=== PATIENT | female | born 1930 | race Caucasian/White ===

== ENCOUNTER 2017-02-15 15:46 | Emergency (ER) | payer OTHER ==
[~2017-02-15] VITALS: Ht 157.5 cm; Wt 50.8 kg
[~2017-02-15 15:46] MED LIST: ACCUPRIL20 MG PO; AUGMENTIN 500-1 EACH PO; CALCIUM500 M1 PO; COLACE100 M1 PO; FISH OIL 1,0001 EAC1 PO; GABAPENTIN400 M2 PO; HYDROCODON-ACE1 EAC2 PO; HYDRODIURIL 2525 MG PO; LEVOTHYROXINE0.1 M1 PO; LEVOTHYROXINE88 MCG PO; MIRALAX17 G1 PO; OXYCONTIN10 M1 PO; PERCOCET 10-321 EACH PO; PRAVASTATIN SOD40 MG PO; SENNA8.6 M3 PO; TRAMADOL HCL50 M1 PO; VITAMIN B-121000 MC3 PO; VITAMIN D32000 UNIT PO
[2017-02-15 16:42] LABS: ABSOLUTE BASOPHIL COUNT 0 /CUMM (0.0-0.2); ABSOLUTE EOSINOPHIL COUNT 0.1 /CUMM (0.0-0.7); ABSOLUTE GRANULOCYTE CT 2.8 /CUMM (1.4-6.5); ABSOLUTE LYMPH COUNT 1.2 /CUMM (1.2-3.4); ABSOLUTE MONOCYTE COUNT 0.8 /CUMM (0.10-0.60); BASOPHIL % 0.4 % (0.0-2.0); EOSINOPHIL % 2.8 % (0-5); GRANULOCYTE % 56.4 % (42.2-75.2); HEMATOCRIT 37.6 % (37-47); MEAN CORPUSCULAR HGB 29.8 PG (27.0-31.0); MEAN CORPUSCULAR HGB CONC 33.3 G/DL (33.0-37.0); MEAN CORPUSCULAR VOLUME 89.4 FL (81.0-99.0); MEAN PLATELET VOLUME 8.2 FL (7.4-10.4); PLATELET COUNT 267 /CUMM (130-400); RBC DISTRIBUTION WIDTH 14.8 % (11.5-14.5); RED BLOOD CELL CT 4.21 /CUMM (4.20-5.40); WHITE BLOOD CELL COUNT 4.9 /CUMM (4.8-10.8)
[2017-02-15 18:40] VITALS: BP 129/93
--- NOTE | 2017-02-15 18:45 | ED GENERAL ADULT ---
See Addendum History of Present Illness General Chief Complaint: General Adult Stated Complaint: SENT BY DR ARENAS FOR EVAL, ELEVATED LIVER ENZ Source: patient, family Exam Limitations: no limitations Vital Signs & Intake/Output Vital Signs & Intake/Output Vital Signs Date Time Temp Pulse Resp B/P B/P Pulse O2 O2 Flow FiO2 Mean Ox Delivery Rate 02/15 1840 97.7 88 20 129/93 94 Room Air 02/15 1552 98.1 73 16 160/82 95 Room Air ED Intake and Output 02/16 0000 02/15 1200 Intake Total Output Total Balance Patient 112 lb Weight Weight Reported by Patient Measurement Method Allergies Coded Allergies: naproxen (From [facility]) (Intermediate, ecchymosis 06/15/16) Reconcile Medications Augmentin (Augmentin 500-125 Tablet) 1 EACH TABLET 500 MG PO Q8 UTI Calcium Carbonate (Calcium) 500 MG TABLET 2 TAB PO DAILY SUPPLEMENT (Reported ) Cholecalciferol (Vitamin D3) (Vitamin D3) 2,000 UNIT CAPSULE 1 CAP PO DAILY SUPPLEMENT (Reported) Cyanocobalamin (Vitamin B-12) 1,000 MCG TABLET 1 TAB PO DAILY SUPPLEMENT ( Reported) Docusate Sodium (Colace) 100 MG CAPSULE 1 CAP PO BID PRN Constipation Gabapentin 400 MG CAPSULE 1 CAP PO QHS NERVE PAIN (Reported) Hydrochlorothiazide (Hydrodiuril 25 MG Tab) 25 MG TABLET 1 TAB PO DAILY HTN ( Reported) Levothyroxine Sodium 88 MCG TABLET 1 TAB PO DAILY THYROID (Reported) [place]-3 Fatty Acids/Fish Oil (Fish Oil 1,000 MG Softgel) 1 EACH CAPSULE 1 CAP PO DAILY SUPPLEMENT (Reported) Oxycodone HCl (Oxycontin) 10 MG TAB.ER.12H 10 MG PO Q12 Pain Oxycodone HCl/Acetaminophen (Percocet 10-325 MG Tablet) 1 EACH TABLET 1 TAB PO 4 TIMES/DAY PRN Pain Polyethylene Glycol 3350 (Miralax) 17 GM POWD.PACK 1 PAC PO DAILY PRN Constipation dissolve in water Pravastatin Sodium 40 MG TABLET 1 TAB PO DAILY CHOL (Reported) Quinapril HCl (Accupril) 20 MG TABLET 1 TAB PO DAILY BP (Reported) Sennosides (Senna) 8.6 MG TABLET 2 TAB PO BID Constipation Triage Note: PT SENT IN BY DR. ARENAS FOR EVAL OF ELEVATED LIVER ENZYMES. PT STATES SHE WAS TAKING X-TRA STRENGTH APAP 3 TIMES A DAY FOR SPINAL STINOSIS AND THINKS THAT IT WHAT DID IT. PT DENIES ANY S/S Triage Nurses Notes Reviewed? yes Onset: Abrupt Duration: unknown duration Timing: remote history HPI: 02/15/17 6:41 PM This is an 86-year-old female presents to the emergency department for ultrasound and follow-up lab testing. According to the patient she saw Dr. Arenas who did outpatient liver enzyme tests and she was told that they were elevated and was asked to come to the emergency department for an ultrasound She denies abdominal pain or other complaints. She does have a past medical history of spinal stenosis. She is been taking 2 extra strength Tylenol tablets 3 times a day since July. No vomiting or fever. (SUMIT MONTERROSO DO) Past History Travel History Traveled to [place] past 21 day No Medical History Any Pertinent Medical History? 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 No (SUMIT MONTERROSO DO) Review of Systems Review of Systems Constitutional: Denies: fever. EENTM: Reports: no symptoms. Respiratory: Denies: short of breath. Cardiovascular: Denies: chest pain. GI: Denies: abdominal pain. Genitourinary: Reports: no symptoms. Musculoskeletal: Reports: joint pain. Skin: Denies: jaundice. Neurological/Psychological: Reports: no symptoms. Hematologic/Endocrine: Reports: no symptoms. Immunologic/Allergic: Reports: no symptoms. (SUMIT MONTERROSO DO) Physical Exam Physical Exam General Appearance: alert, awake, anxious, mild distress Head: atraumatic, normal appearance Eyes: Bilateral: normal appearance, PERRL, EOMI. Ears, Nose, Throat: normal pharynx, normal ENT inspection Neck: normal inspection, supple, full range of motion Respiratory: normal breath sounds, chest non-tender Cardiovascular: regular rate/rhythm Peripheral Pulses: 4+ radial (R), 4+ radial (L) Gastrointestinal: soft, non-tender Back: normal range of motion Extremities: normal inspection, normal range of motion Neurologic/Psych: no motor/sensory deficits, awake, alert, oriented x 3 Skin: intact, normal color, warm/dry Core Measures ACS in differential dx? No CVA/TIA Diagnosis: No Severe Sepsis Present: No Septic Shock Present: No (SUMIT MONTERROSO DO) Progress Differential Diagnoses I considered the following diagnoses in my evaluation of the patient: [Chronic Tylenol poisoning, hepatitis, choledocholithiasis, cholangiocarcinoma, adverse drug reaction] Plan of Care: Orders Procedure Date/time Status Add-on Test (ER Only) 02/15 1859 Active Add-on Test (ER Only) 02/15 1846 Active Add-on Test (ER Only) 02/15 1801 Active ACETOMINOPHEN 02/15 1630 Active PROTHROMBIN TIME 02/15 1630 Complete HEPATITIS PANEL 02/15 1630 Active COMPREHENSIVE METABOLIC PANEL 02/15 1619 Active CBC WITHOUT DIFFERENTIAL 02/15 1619 Complete Laboratory Tests 02/15/17 1630: Anion Gap 9, Estimated GFR > 60, BUN/Creatinine Ratio 50.0 H, Glucose 85, Calcium 9.4, Total Bilirubin 0.5, AST 88 H, ALT 145 H, Alkaline Phosphatase 577 H, Total Protein 6.6, Albumin 4.0, Globulin 2.6, Albumin/Globulin Ratio 1.5 , PT 11.1, INR 1.06, CBC w Diff NO MAN DIFF REQ, RBC 4.21, MCV 89.4, MCH 29.8, RDW 14.8 H, MPV 8.2, Gran % 56.4, Lymphocytes % 24.8, Monocytes % 15.6 H, Eosinophils % 2.8, Basophils % 0.4, Absolute Granulocytes 2.8, Absolute Lymphocytes 1.2, Absolute Monocytes 0.8 H, Absolute Eosinophils 0.1, Absolute Basophils 0, PUBS MCHC 33.3, Hepatitis A IgM Ab Pending, Hep Bs Antigen Pending, Hep B Core IgM Ab Conf Pending, Hepatitis C Antibody Pending, Acetaminophen < 10.0 L Initial ED EKG: none (SUMIT MONTERROSO DO) Departure Departure Disposition: STILL A PATIENT Condition: Stable Clinical Impression Primary Impression: Hepatitis Referrals: JAMARCUS HOOKS,MERLIN Hartman (PCP/Family) Departure Forms: Customer Survey General Discharge Information (SUMIT MONTERROSO DO) Departure Comments pt left prior to ultrasound.... family stated there was too much delay... they will follow up with dr. arenas. (VIDHYA HOOKS,JEFF Gamble) Critical Care Note Critical Care Note Critical Care Time: non-applicable (SUMIT MONTERROSO DO)
[2017-02-15 19:41] LABS: PT 11.1 SEC (9.4-12.5)
[2017-03-15] MEDS ORDERED: QUINAPRIL HCL20 M1 PO (10:30)
== END 2017-02-15 19:54 ==
LOC: ERH 15:46
PROVIDERS: Emergency Medicine
DX: K75.9 Inflammatory liver disease, unspecified (principal)
CPT/HCPCS: G0480

== ENCOUNTER → 2017-03-17 | Day surgery (SDC) | payer OTHER ==
[~2017-03-17] VITALS: Ht 154.9 cm; Wt 50.8 kg
[~2017-03-17] MED LIST changes: +QUINAPRIL HCL20 M1 PO
--- NOTE | 2017-03-17 14:03 | Operative Report ---
Operative/Inv Procedure Report Surgery Date: 03/17/17 Name of Procedure: Cataract extraction lens implantation right eye Pre-Operative Diagnosis: Age-related cataract right eye 20/40 vision 20/100 glare vision Post-Operative Diagnosis: Same Estimated Blood Loss: none Surgeon/Registrar Museum: BEVERLY HOOKS,MARIAMA Galindo Anesthesia: local monitored anesthesi Complications: None Operative/Procedure Note Note: The patient was brought to the operating room standard monitoring equipment was attached the patient was prepped and draped in the usual fashion for intraocular surgery. A lid speculum was placed to retract the lids. The case was begun by making 2 partial-thickness corneal relaxing incisions at 90. A temporal incision with a 2.4 mm keratome. The eye was stabilized with a Jones ring during this incision. 1 mL of non-preserved shugarcaine was introduced into the anterior chamber to provide anesthesia and to try to dilate the pupil. This was not successful in terms of the dilation. The anterior chamber was then filled and deepened with viscoelastic. A second or paracentesis incision was made temporally with a 1 mm MVR blade.2 Kuglen hooks were introduced 1 through the paracentesis site and one to the main incision and in a cross action technique stretch the iris to provide a bigger pupillary space. A curvilinear capsulorrhexis was achieved using a 30-gauge needle and is a cystotome. The initial tear went to far peripherally a second stab incision was made the capsulorrhexis was completed with a Utrata forceps however there was a discontinuity in the anterior capsular rim. The lens was then hydrodissected very carefully with balanced salt solution and found to be rotatable. The lens was emulsified using phacoemulsification and a modified four-quadrant cracking technique. The residual cortical material was removed using automated irrigation and aspiration and if the conclusion of this was noted that there was some dehiscence in the posterior capsule from the eye wall nasally which was a different position from the anterior capsular rim problem noted before. The area above the capsular bag was deepened with viscoelastic. The lens a 3 piece MA60AC 20.0 diopter was folded and then placed into the ciliary sulcus under direct visualization after the incision was enlarged. It was rotated so that the haptics were at 12 and 6:00. Viscoelastic was then removed from the eye by flushing it out and then by automated irrigation and aspiration. Small amount of Miostat was introduced into the anterior chamber to constrict the pupil. The eye was pressurized to a normal tone. The wound was then sutured with 2 10-0 nylon sutures whose knots were trimmed and buried. The lid speculum was removed from the orbit. Antibiotic and steroid drops were placed on the eye and then the eye was shielded. Monitoring equipment was removed from the patient and the patient was removed from the operative suite to the holding area. The patient tolerated the procedure well and will be seen in the office tomorrow.
== END ==
LOC: STS 04:39
DX: H25.9 Unspecified age-related cataract (principal); I10 Essential (primary) hypertension
CPT/HCPCS: J2250; V2632